=== PATIENT | male | born 1980 | race Hispanic/Latino ===

== ENCOUNTER 2017-06-28 18:10 | Emergency (ER) | payer OTHER, SELFPAY ==
--- NOTE | 2017-06-28 19:47 | EDPHYS ---
Physician Documentation [facility] Name: Gene Cade Age: 36 yrs Sex: Male : 1980 Arrival Date: 06/28/2017 Time: 18:10 Bed 30 Private MD: ED Physician Mick Mccarthy HPI: 06/28 19:43 This 36 yrs old Male presents to ER via Wheelchair with complaints of Neck mendel Pain, <24hrs Old, Shoulder Pain. 19:43 The patient or guardian complains of decreased range of motion, pain, a rash. The mendel symptoms are located. Historical: - Allergies: 18:26 Aspirin; aj - Home Meds: 18:26 escitalopram oxalate oral oral [Active]; Genvoya [phone] mg oral tab 1 tab once aj daily [Active]; - PMHx: 18:26 Intestinal parasite; HIV; aj - PSHx: 18:26 None; aj - Immunization history:: Adult Immunizations up to date. - Social history:: Smoking status: Patient uses tobacco products, smokes one-half pack cigarettes per day. ROS: 19:44 Constitutional: Negative for fever, chills, and weight loss, Eyes: Negative for injury, mendel pain, redness, and discharge, ENT: Negative for injury, pain, and discharge, Cardiovascular: Negative for chest pain, palpitations, and edema, Respiratory: Negative for shortness of breath, cough, wheezing, and pleuritic chest pain, Abdomen/GI: Negative for abdominal pain, nausea, vomiting, diarrhea, and constipation, Back: Negative for injury and pain, : Negative for injury, bleeding, discharge, and swelling, MS/Extremity: Negative for injury and deformity, Skin: Negative for injury, rash, and discoloration, Neuro: Negative for headache, weakness, numbness, tingling, and seizure, Psych: Negative for depression, anxiety, suicide ideation, homicidal ideation, and hallucinations, Allergy/Immunology: Negative for hives, rash, and allergies, Endocrine: Negative for neck swelling, polydipsia, polyuria, polyphagia, and marked weight changes, Hematologic/Lymphatic: Negative for swollen nodes, abnormal bleeding, and unusual bruising. 19:44 Neck: Positive for pain with movement, pain at rest, rash, swelling. 19:44 Skin: Positive for cellulitis, erythema, rash, swelling, of the right supraclavicular area and right clavicle and back of neck and back of head. Exam: 19:44 Constitutional: This is a well developed, well nourished patient who is awake, alert, mendel and in no acute distress. Eyes: Pupils equal round and reactive to light, extra-ocular motions intact. Lids and lashes normal. Conjunctiva and sclera are non-icteric and not injected. Cornea within normal limits. Periorbital areas with no swelling, redness, or edema. ENT: Nares patent. No nasal discharge, no septal abnormalities noted. Tympanic membranes are normal and external auditory canals are clear. Oropharynx with no redness, swelling, or masses, exudates, or evidence of obstruction, uvula midline. Mucous membranes moist. Chest/axilla: Normal chest wall appearance and motion. Nontender with no deformity. No lesions are appreciated. Cardiovascular: Regular rate and rhythm with a normal S1 and S2. No gallops, murmurs, or rubs. Normal PMI, no JVD. No pulse deficits. Respiratory: Lungs have equal breath sounds bilaterally, clear to auscultation and percussion. No rales, rhonchi or wheezes noted. No increased work of breathing, no retractions or nasal flaring. Abdomen/GI: Soft, non-tender, with normal bowel sounds. No distension or tympany. No guarding or rebound. No evidence of tenderness throughout. Back: No spinal tenderness. No costovertebral tenderness. Full range of motion. Male : Normal genitalia with no discharge or lesions. MS/ Extremity: Pulses equal, no cyanosis. Neurovascular intact. Full, normal range of motion. Neuro: Awake and alert, GCS 15, oriented to person, place, time, and situation. Cranial nerves II-XII grossly intact. Motor strength 5/5 in all extremities. Sensory grossly intact. Cerebellar exam normal. Normal gait. Psych: Awake, alert, with orientation to person, place and time. Behavior, mood, and affect are within normal limits. 19:44 Head/face: Noted is erythema, rash, swelling, that is moderate, of the right occipital area, right base of the skull and right mandible, tenderness, that is moderate. Vital Signs: 18:26 BP 144 / 93; Pulse 98; Resp 20; Temp 97.2; Pulse Ox 100% on R/A; Weight 88 kg; Height 6 aj ft. 0 in. (182.88 cm); Pain 3/10; 19:05 BP 138 / 85; Pulse 66; Resp 18; Pulse Ox 100% on R/A; Pain 6/10; lp1 19:30 BP 114 / 67; Pulse 69; Resp 18; Pulse Ox 100% on R/A; lp1 20:30 BP 136 / 90; Pulse 66; Resp 18; Pulse Ox 100% on R/A; lp1 21:30 BP 151 / 90; Pulse 61; Resp 18; Temp 98.1(O); Pulse Ox 100% on R/A; Pain 8/10; lp1 18:26 Body Mass Index 26.31 (88.00 kg, 182.88 cm) aj MDM: 19:30 Patient medically screened. [facility] 19:44 Data reviewed: vital signs, nurses notes, lab test result(s), EKG, radiologic studies, [facility] CT scan, plain films. 06/28 19:42 Order name: Basic Metabolic Panel [facility] 06/28 19:42 Order name: BNP; Complete Time: 21:42 [facility] 06/28 19:42 Order name: CBC with Diff; Complete Time: 21:42 [facility] 06/28 19:42 Order name: Ckmb; Complete Time: 21:42 [facility] 06/28 19:42 Order name: CPK; Complete Time: 21:42 [facility] 06/28 19:42 Order name: LFT's; Complete Time: 21:42 [facility] 06/28 19:42 Order name: Magnesium; Complete Time: 21:42 [facility] 06/28 19:42 Order name: PT-INR; Complete Time: 21:42 [facility] 06/28 19:42 Order name: Ptt, Activated; Complete Time: 21:42 [facility] 06/28 19:42 Order name: Troponin (emerg Dept Use Only); Complete Time: 21:42 [facility] 06/28 19:42 Order name: Blood Culture Adult (2) [facility] 06/28 19:43 Order name: Basic Metabolic Panel; Complete Time: 21:42 [facility] 06/28 19:50 Order name: Miscellaneous Test Lab; Complete Time: 21:42 [facility] 06/28 19:42 Order name: XRAY Chest (1 view); Complete Time: 21:42 [facility] 06/28 19:42 Order name: EKG; Complete Time: 19:43 [facility] 06/28 19:42 Order name: Cardiac monitoring; Complete Time: 20:16 [facility] 06/28 19:42 Order name: EKG - Nurse/Tech; Complete Time: 20:16 [facility] 06/28 19:42 Order name: IV Saline Lock; Complete Time: 20:16 [facility] 06/28 19:42 Order name: Labs collected and sent; Complete Time: 20:16 [facility] 06/28 19:42 Order name: O2 Per Protocol; Complete Time: 20:16 [facility] 06/28 19:42 Order name: O2 Sat Monitoring; Complete Time: 20:16 [facility] Administered Medications: 20:15 Drug: NS 0.9% 1000 ml Route: IV; Rate: 1 bolus; Site: right antecubital; lp1 21:45 Follow up: IV Status: Completed infusion lp1 20:16 Drug: fentaNYL (PF) 50 mcg Route: IVP; Site: right antecubital; lp1 20:30 Follow up: Response: Pain is decreased lp1 20:16 Drug: Zofran 4 mg Route: IVP; Site: right antecubital; lp1 20:30 Follow up: Response: No adverse reaction lp1 20:45 Drug: Acyclovir (20mg/kg) 800 mg Route: IVPB; Site: right antecubital; lp1 21:44 Follow up: IV Status: Completed infusion lp1 21:19 Drug: vancoMYCIN 1 grams Route: IVPB; Infused Over: 2 hrs; Site: left forearm; 21:45 Follow up: IV Status: Infusion continued upon transfer lp1 21:44 Drug: fentaNYL (PF) 50 mcg Route: IVP; Site: right antecubital; lp1 21:45 Follow up: Given prior to transfer lp1 Disposition: 06/28/17 19:47 Transfer ordered to [facility] (formerly [facility]3]. Diagnosis are Zoster [herpes zoster], Human immunodeficiency virus [HIV] disease, Cellulitis and acute lymphangitis of face and neck. - Reason for transfer: Higher level of care. - Accepting physician is to [facility]. - Condition is Fair. - Problem is new. - Symptoms have improved. Signatures: Dispatcher [employer] Reanna Woods RN RN aj Anderson, Corey, MD MD cha Chretien, Felicia, RN RN Hdz, Jaclyn, RN RN lp1
--- NOTE | 2017-06-28 19:47 | ER ---
Nurse's Notes [facility] Name: Gene Cade Age: 36 yrs Sex: Male : 1980 Arrival Date: 06/28/2017 Time: 18:10 Bed 30 Private MD: Diagnosis: Zoster [herpes zoster];Human immunodeficiency virus [HIV] disease;Cellulitis and acute lymphangitis of face and neck Presentation: 06/28 18:23 Presenting complaint: Patient states: Posterior neck pain that started 3 days ago. aj Patient reports he has sever pain when sitting up or standing. Transition of care: patient was not received from another setting of care. Onset of symptoms was June 25, 2017. Initial Sepsis Screen: Does the patient meet any 2 criteria? No. Patient's initial sepsis screen is negative. Does the patient have a suspected source of infection? No. Patient's initial sepsis screen is negative. Care prior to arrival: None. 18:23 Method Of Arrival: Wheelchair aj 18:23 Acuity: OFELIA 3 aj Triage Assessment: 18:26 General: Appears in no apparent distress. uncomfortable, Behavior is calm, cooperative, aj appropriate for age. Pain: Complains of pain in head, back of head and back of neck Pain currently is 10 out of 10 on a pain scale. Neuro: Level of Consciousness is awake, alert, obeys commands, Oriented to person, place, time, situation, Appropriate for age. Neuro: Denies photophobia. Respiratory: Airway is patent Respiratory effort is even, unlabored, Respiratory pattern is regular, symmetrical. Derm: Skin is intact, is healthy with good turgor, Skin is pink, warm \T\ dry. normal. Historical: - Allergies: 18:26 Aspirin; aj - Home Meds: 18:26 escitalopram oxalate oral oral [Active]; Genvoya [id number] mg oral tab 1 tab once aj daily [Active]; - PMHx: 18:26 Intestinal parasite; HIV; aj - PSHx: 18:26 None; aj - Immunization history:: Adult Immunizations up to date. - Social history:: Smoking status: Patient uses tobacco products, smokes one-half pack cigarettes per day. Screenin:09 Abuse screen: Denies threats or abuse. Denies injuries from another. Nutritional lp1 screening: No deficits noted. Tuberculosis screening: No symptoms or risk factors identified. Fall Risk None identified. Assessment: 19:06 General: Appears uncomfortable, Behavior is calm, cooperative, appropriate for age. lp1 Pain: Complains of pain in back of neck Pain currently is 6 out of 10 on a pain scale. Quality of pain is described as sharp, Pain began gradually, Aggravated by increased activity. Neuro: Level of Consciousness is awake, alert, obeys commands, Oriented to person, place, time, situation. Cardiovascular: Patient's skin is warm and dry. Respiratory: Respiratory effort is even, unlabored. GI: No signs and/or symptoms were reported involving the gastrointestinal system. : No signs and/or symptoms were reported regarding the genitourinary system. EENT: No signs and/or symptoms were reported regarding the EENT system. Derm: swelling noted to right base of scalp, small abscesses noted to area. Musculoskeletal: Circulation, motion, and sensation intact. 20:00 Reassessment: Patient is alert, oriented x 3, equal unlabored respirations, skin lp1 warm/dry/pink. Pain to neck at this time; MD aware. 21:00 Reassessment: Patient appears in no apparent distress at this time. Patient and/or lp1 family updated on plan of care and expected duration. Pain level reassessed. Patient is alert, oriented x 3, equal unlabored respirations, skin warm/dry/pink. Patient aware of need for transfer. 21:48 Reassessment: Report called to Reanna Sutton RN at [facility]. lp1 Vital Signs: 18:26 BP 144 / 93; Pulse 98; Resp 20; Temp 97.2; Pulse Ox 100% on R/A; Weight 88 kg; Height 6 aj ft. 0 in. (182.88 cm); Pain 3/10; 19:05 BP 138 / 85; Pulse 66; Resp 18; Pulse Ox 100% on R/A; Pain 6/10; lp1 19:30 BP 114 / 67; Pulse 69; Resp 18; Pulse Ox 100% on R/A; lp1 20:30 BP 136 / 90; Pulse 66; Resp 18; Pulse Ox 100% on R/A; lp1 21:30 BP 151 / 90; Pulse 61; Resp 18; Temp 98.1(O); Pulse Ox 100% on R/A; Pain 8/10; lp1 18:26 Body Mass Index 26.31 (88.00 kg, 182.88 cm) ED Course: 18:10 Patient arrived in ED. as 18:24 Triage completed. aj 18:26 Arm band placed on right wrist. Patient placed in an exam room. aj 18:58 Jaclyn Hdz, RN is Primary Nurse. lp1 19:09 Patient has correct armband on for positive identification. Placed in gown. Pulse ox lp1 on. NIBP on. 19:30 Mick Mccarthy MD is Attending Physician. [facility] 19:55 Inserted saline lock: 20 gauge in right antecubital area, using aseptic technique. lp1 Blood collected. 20:02 X-ray completed. Portable x-ray completed in exam room. Patient tolerated procedure bb2 well. 20:03 XRAY Chest (1 view) In Process Unspecified. EDMS 21:14 Inserted saline lock: 20 gauge in left forearm, using aseptic technique. 21:51 No provider procedures requiring assistance completed. Patient transferred, IV remains lp1 in place. Administered Medications: 20:15 Drug: NS 0.9% 1000 ml Route: IV; Rate: 1 bolus; Site: right antecubital; lp1 21:45 Follow up: IV Status: Completed infusion lp1 20:16 Drug: fentaNYL (PF) 50 mcg Route: IVP; Site: right antecubital; lp1 20:30 Follow up: Response: Pain is decreased lp1 20:16 Drug: Zofran 4 mg Route: IVP; Site: right antecubital; lp1 20:30 Follow up: Response: No adverse reaction lp1 20:45 Drug: Acyclovir (20mg/kg) 800 mg Route: IVPB; Site: right antecubital; lp1 21:44 Follow up: IV Status: Completed infusion lp1 21:19 Drug: vancoMYCIN 1 grams Route: IVPB; Infused Over: 2 hrs; Site: left forearm; fc 21:45 Follow up: IV Status: Infusion continued upon transfer lp1 21:44 Drug: fentaNYL (PF) 50 mcg Route: IVP; Site: right antecubital; lp1 21:45 Follow up: Given prior to transfer lp1 Intake: Outcome: 19:47 ER care complete, transfer ordered by . [facility] 21:51 Transferred by ground EMS to [facility], Transfer form lp1 completed. X-rays sent w/ patient. 21:51 Condition: stable 21:51 Instructed on the need for transfer. 21:52 Patient left the ED. lp1 Signatures: Dispatcher [employer] Reanna Woods RN RN aj Anderson, Corey, MD MD cha Chretien, Felicia, RN RN fc Martinez, Amelia as Pena, Laura, RN RN lp1 Magda Orozco
[2017-06-28] MEDS ORDERED: NA CHLORIDE 0.9% 1,000 ML ONE (20:05)
[2017-06-28] MEDS ORDERED: ONDANSETRON 4 MG/2 ML VIAL ONE (20:05)
[2017-06-28] MEDS ORDERED: FENTANYL CITR 100 MCG/2 ML ONE (20:05)
[2017-06-28 20:13] LABS: Absolute Lymphocytes (CBC) 1.8 K/uL (0.7-4.9); Absolute Monocytes 0.6 K/uL (0.1-1.3); Absolute Neutrophil 2.1 K/uL (1.8-8.0); Basophils % 0.6 % (0-1.3); Eosinophils % 1.6 % (0-4.4); Hematocrit 46.7 % (39.6-49.0); Lymphocytes % 39.5 % (15.3-44.8); MCH 30.9 pg (27.0-35.0); MCV 91.9 fL (80-100); MPV 7.9 fL (7.6-11.3); Monocytes % 11.9 % (3.3-12.3); RBC Red Blood Cell Count 5.08 M/uL (4.33-5.43)
[2017-06-28 20:16] LABS: Protime INR 1.01
[2017-06-28 20:21] LABS: Potassium 3.6 mEq/L (3.6-5.0)
[2017-06-28 20:27] LABS: Albumin 3.7 g/dL (3.2-5.5); Bilirubin Direct 0.1 mg/dL (0-0.2); Bilirubin Total 0.4 mg/dL (0.3-1.2); Protein, Total 7.9 g/dL (6.0-8.3)
[2017-06-28 20:30] LABS: CKMB Creatine Kinase MB 1.6 ng/ml (0.3-4.0)
[2017-06-28] MEDS ORDERED: ACYCLOVIR NA 500 MG/VIAL IVPB ONE (20:37)
[2017-06-28] MEDS ORDERED: NA CHLORIDE 0.9% 250 ML ONE ×2 (20:41→21:04)
[2017-06-28] MEDS ORDERED: VANCOMYCIN 1 GM/VIAL ONE (20:41)
--- NOTE | 2017-06-28 20:43 | RAD REPORT ---
EXAM DESCRIPTION: Jerome Single View06/28/2017 8:19 pm CLINICAL HISTORY: cough COMPARISON: none FINDINGS: The lungs appear clear of acute infiltrate. The heart is normal size IMPRESSION: No acute abnormalities displayed
--- NOTE | 2017-06-29 16:28 | EKG ---
Test Date: 2017-06-28 Test Time: 20:10:39 Offset Platemaker: DENZEL MEASUREMENT RESULTS: Intervals: Rate: 61 AL: 140 QRSD: 96 QT: 406 QTc: 408 Aurelia: P: 52 AL: 140 QRS: 67 T: 59 INTERPRETIVE STATEMENTS: Normal sinus rhythm Normal ECG No previous ECG available for comparison Electronically Signed On 06-29-17 16:23:58 CDT by Vasu Claire
== END 2017-06-28 21:52 | disposition short-term general hospital (02) ==
LOC: ER 18:10
DX: B02.9 Zoster without complications (principal); L03.211 Cellulitis of face; L03.221 Cellulitis of neck; F17.210 Nicotine dependence, cigarettes, uncomplicated; Z21 Asymptomatic human immunodeficiency virus [HIV] infection status; Z88.6 Allergy status to analgesic agent
CPT/HCPCS: 36415; 71045; 80048; 80076; 82550; 82553; 83735; 83880; 84484; 85025; 85610; 85730; 87040; 93005; 99285; J0133; J2405; J3010; J7030

== ENCOUNTER 2019-08-15 04:11 | Emergency (ER) | payer SELFPAY ==
--- OUTSIDE RECORDS SUMMARY | 2019-08-15 04:14 | XMS REPORT | Summary of Care ---
:1980 Author Organization [facility] Address [address] [place] [address] Care Team Providers Name Role Phone Pcp, Does Not Have A Primary Care Provider Reason for Visit Reason Comments Follow-up 6m attestation agusto vargas edication adherence/instructions Encounter Details Date Type Department Care Team Description 05/28/2019 Telephone [facility] Smitha Christie, Follow-u p (6m Infectious Diseases- RN attestation [address], medication [facility] [address] adherence/instructions [address] [place] [address] [address], [address] [place] [address] Allergies Active Allergy Reactions Severity Noted Date Comments Aspirin Swelling 12/02/2012 With a rash documented as of this encounter (statuses as of 05/28/2019) Medications Medication Sig Dispensed Refills Start Date End Date Status kqqrtgg-hog-yyoqm-tenof Take 1 tablet by 30 tablet 5 9 Active ALAFEN [id number] mouth daily. mg per tabletIndications: Asymptomatic HIV infection sulfamethoxazole-trimet 1 po daily 100 tablet 1 01/01/2019 Active hoprim (BACTRIM DS) 800-160 mg per tabletIndications: Asymptomatic HIV infection triamcinolone acetonide Apply to rash 15 g 2 03/10/2019 Active 0.1 % creamIndications: once daily as Rash needed for rash documented as of this encounter (statuses as of 05/28/2019) Active Problems Problem Noted Date Herpes zoster with meningitis 06/29/2017 Occipital lymphadenopathy 06/29/2017 Skin lesion of neck 06/29/2017 H/O gonorrhea of rectum 06/29/2017 H/O syphilis 06/29/2017 Positive test for herpes simplex virus (HSV) antibody 06/29/2017 Human immunodeficiency virus (HIV) disease 12/18/2012 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 RPR > 1:1024 (12/02/12), Treated with Bicillin 2.4 mil units x 3 on 12/24, 01/20, 02/13/13. Repeat RPR 1:64 (06/16) and 1:32 (12/19). 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 06/29/2017 documented as of this encounter (statuses as of 05/28/2019) Immunizations Name Administration Dates Next Due HEPATITIS A 12/24/2012 HEPLISAV HEP B, ADULT 2 DOSE, IM 03/10/2019 Hep B, Adol or Pedi Dosage 02/18/2013, 12/24/2012 Influenza Virus Vaccine (3+ yrs) 12/02/2012 Influenza Virus Vaccine Quad .5 mL IM 6+ MO 12/13/2018 Influenza Virus Vaccine Quad IM 3+ YRS 12/22/2016 Pneumococcal Polysaccharide, PPSV23 (PNEUMOVAX) 12/24/2012 Tetanus/Diptheria 06/24/2013 Twinrix (hep a/hep b) 06/24/2013 documented as of this encounter Social History Tobacco Use Types Packs/Day Years Used Date Former Smoker Cigarettes 0.25 06/28/1992 - 0 04/10/2018 Smokeless Tobacco: Never Used Comments: Smokes 2 packs a month Alcohol Use Drinks/Week oz/Week Comments Yes 2 Glasses of wine 1.7 drinks twice a month Sex Assigned at Date Recorded Not on file Job Start Date Occupation Industry Not on file Not on file Not on file Travel History Travel Start Travel End No recent travel history available. documented as of this encounter Last Filed Vital Signs Not on filedocumented in this encounter Plan of Treatment Date Type Specialty Care Team Description 06/09/2019 Office Visit [facility] [address] [place] [address] [phone] Health Maintenance Due Date Last Done Comments DTaP,Tdap,and Td Vaccines (1 - Tdap) 1989 PNEUMOCOCCAL 0-64 YEARS COMBINED 12/24/2013 12/24/2012 SERIES (2 of 3 - PCV13) INFLUENZA VACCINE Completed 12/13/2018, 12/22/2016, 12/02/2012 documented as of this encounter Results Not on filedocumented in this encounter
--- OUTSIDE RECORDS SUMMARY | 2019-08-15 04:14 | XMS REPORT | Summary of Care ---
:1980 Author Organization [address] [address] Care Team Providers Name Role Phone Pcp, Does Not Have A Primary Care Provider Reason for Visit Reason Comments Rx Concern/Question THMP/ADAP emergency attestat ion uploaded into [email or web address] for processing Encounter Details Date Type Department Care Team Description 05/30/2019 Case Management [facility] Selin Christiansen MA Rx Concern/Question Infectious [address] [place] [address] (THMP/ADAP em [facility] [place] [address] [place] [address] into [email or web address] for [address] [place] [address] Allergies Active Allergy Reactions Severity Noted Date Comments Aspirin Swelling 12/02/2012 With a rash documented as of this encounter (statuses as of 05/30/2019) Medications Medication Sig Dispensed Refills Start Date End Date Status kkfkldf-faq-hfxam-tenof Take 1 tablet by 30 tablet 5 9 Active ALAFEN [id number] mouth daily. mg per tabletIndications: Asymptomatic HIV infection sulfamethoxazole-trimet 1 po daily 100 tablet 1 01/01/2019 Active hoprim (BACTRIM DS) 800-160 mg per tabletIndications: Asymptomatic HIV infection triamcinolone acetonide Apply to rash 15 g 2 03/10/2019 Active 0.1 % creamIndications: once daily as Rash needed for rash documented as of this encounter (statuses as of 05/30/2019) Active Problems Problem Noted Date Herpes zoster [...] as of this encounter (statuses as of 05/30/2019) Resolved Problems Problem Noted Date Resolved Date Herpes zoster 07/01/2017 07/04/2017 Cellulitis of neck 06/29/2017 07/04/2017 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 A copy of the upload notice has been filed in client's [place] case management chart. A total of 30 minutes was taken to complete this encounter. documented in this encounter Plan of Treatment Date Type Specialty Care Team Description 06/09/2019 Telemedicine Visit [facility] [place] SHAMIR Abrams [address] [place] [address] Health Maintenance Due Date Last Done Comments DTaP,Tdap,and Td Vaccines (1 - Tdap) 1989 PNEUMOCOCCAL 0-64 YEARS COMBINED 12/24/2013 12/24/2012 SERIES (2 of 3 - PCV13) INFLUENZA VACCINE Completed 12/13/2018, 12/22/2016, 12/02/2012 documented as of this encounter Results Not on filedocumented in this encounter
--- OUTSIDE RECORDS SUMMARY | 2019-08-15 04:14 | XMS REPORT | Continuity of Care Document ---
:1980 Author Organization [facility] t Address [facility]ly [facility] [address] [place] [address] Care Team Providers Name Role Phone Oscar BARKSDALE Attending Clinician Karissa Christiansen MA Attending Clinician Unavailable Pratik BANSAL L Attending Clinician Unavailable Karissa Lawson LVN Attending Clinician Unavailable Problems This patient has no known problems. Allergies, Adverse Reactions, Alerts This patient has no known allergies or adverse reactions. Medications This patient has no known medications. Procedures This patient has no known procedures. Encounters Start End Encounter Admission Attending Care Care Encounter Source Date/Time Date/Time Type Type Clinicians Facility Department ID 2019-07-22 2019-07-22 Nathalie Moore [facility] [id number] 00:00:00 00:00:00 [facility] [id number] [facility] [id number] 2019-07-18 2019-07-18 Nathalie Moore [facility] [id number] 00:00:00 00:00:00 [facility] [id number] [facility] [id number] 2019-05-30 2019-05-30 Case CRISTINA Christiansen [id number] 00:00:00 00:00:00 Management [facility] [id number] [facility] [id number] 2019-05-28 2019-05-28 Telephone CRISTINA Christie [id number] 00:00:00 00:00:00 [facility] [id number] [facility] [id number] 2019-05-06 2019-05-06 [facility] [id number] 00:00:00 00:00:00 Management [facility] [id number] [facility] [id number] 2019-05-06 2019-05-06 [facility] [id number] 00:00:00 00:00:00 Management [facility] [id number] [facility] [id number] 2018-11-05 2018-11-05 [place] [id number] 00:00:00 00:00:00 [facility] [id number] [facility] [id number] 2018-10-29 [facility] [id number] 00:00:00 00:00:00 [facility] [id number] [facility] [id number] 2018-10-22 2018-10-22 [facility] [id number] 00:00:00 00:00:00 Management [facility] [id number] [facility] [id number] Results This patient has no known results.
--- OUTSIDE RECORDS SUMMARY | 2019-08-15 04:15 | XMS REPORT | Summary of Care ---
:1980 Author Organization [facility] Address [address] [place] [id number] Care Team Providers Name Role Phone Pcp, Does Not Have A Primary Care Provider Reason for Visit Reason Comments Refill Request Encounter Details Date Type Department Care Team Description 07/22/2019 Refill [facility], SHAMIR Siddiqui Refill Request Diseases- [id number] [place] [address] [place] [address] [place] [address] Allergies Active Allergy Reactions Severity Noted Date Comments Aspirin Swelling 12/02/2012 With a rash documented as of this encounter (statuses as of 07/22/2019) Medications Medication Sig Dispensed Refills Start Date End Date Status sulfamethoxazole-trimet 1 po daily 100 tablet 1 01/01/2019 Active hoprim (BACTRIM DS) 800-160 mg per tabletIndications: Asymptomatic HIV infection triamcinolone acetonide Apply to rash 15 g 2 03/10/2019 Active 0.1 % creamIndications: once daily as Rash needed for rash tnjeolv-jdm-qumvq-tenof Take 1 tablet by 30 tablet 0 0 Active ALAFEN [phone] mouth daily. 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 documented as of this encounter (statuses as of 07/22/2019) Immunizations Name Administration Dates Next Due HEPATITIS [...] filedocumented in this encounter Plan of Treatment Health Maintenance Due Date Last Done Comments DTaP,Tdap,and Td Vaccines (1 - Tdap) 1989 PNEUMOCOCCAL 0-64 YEARS COMBINED 12/24/2013 12/24/2012 SERIES (2 of 3 - PCV13) INFLUENZA VACCINE Completed 12/13/2018, 12/22/2016, 12/02/2012 documented as of this encounter Results Not on filedocumented in this encounter Visit Diagnoses Diagnosis Asymptomatic HIV infection Asymptomatic human immunodeficiency viru s (HIV) infection status documented in this encounter
--- OUTSIDE RECORDS SUMMARY | 2019-08-15 04:15 | XMS REPORT | Summary of Care ---
:1980 Author Organization [facility] - [address] [address] Care Team Providers Name Role Phone Pcp, Does Not Have A Primary Care Provider Reason for Visit Reason Comments Refill Request mpgnvxl-adx-eatmj-tenof ALAF EN (GENVOYA) [phone] mg per tablet 1 tablet Encounter Details Date Type Department Care Team Description 07/18/2019 Refill [facility], SHAMIR Siddiqui Refill Request Diseases- [address] (vsdebfv-xsc-yfify-tenof [facility] [id number] ALAFEN (GENVOYA) [address] [place], [place] 150- [phone] mg per 6th Floor [id number] tablet 1 tablet ) [place], [place] [phone] Allergies Active Allergy Reactions Severity Noted Date Comments Aspirin Swelling 12/02/2012 With a rash documented as of this encounter (statuses as of 07/21/2019) Medications Medication Sig Dispensed Refills Start Date End Date Status sulfamethoxazole-tr 1 po daily 100 tablet 1 01/01/2019 Active imethoprim (BACTRIM DS) 800-160 mg per tabletIndications: Asymptomatic HIV infection triamcinolone Apply to 15 g 2 03/10/2019 Activ e acetonide 0.1 % rash once creamIndications: daily as Rash needed for rash wpdzcbt-okm-bwdqf-t Take 1 30 tablet 0 07/21/2019 Active enof ALAFEN tablet by [phone] mg mouth per daily. tabletIndications: Asymptomatic HIV infection sfhitdh-uux-wgplq-t Take 1 30 tablet 5 01/01/2019 Discontinued enof ALAFEN tablet by 0 (Reorder ) [phone] mg mouth per daily. 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
[2019-08-15] MEDS ORDERED: NA CHLORIDE 0.9% 1,000 ML ONE (04:38)
[2019-08-15 04:54] LABS: Absolute Lymphocytes (CBC) 0.8 K/uL (0.7-4.9); Basophils % 0.3 % (0-1.3); Hematocrit 38.1 % (39.6-49.0); Lymphocytes % 19.4 % (15.3-44.8); RBC Red Blood Cell Count 4.18 M/uL (4.33-5.43)
[2019-08-15 05:07] LABS: Potassium 3.7 mmol/L (3.5-5.1)
--- NOTE | 2019-08-15 06:09 | ER ---
Nurse's Notes [facility] Name: Gene Cade Age: 38 yrs Sex: Male : 1980 Arrival Date: 08/15/2019 Time: 04:12 Bed 3 Private MD: Diagnosis: Suspected heroin overdose Presentation: 08/14 04:02 Chief complaint: EMS states: PT was found unresponsive and not breathing by bystanders. jb4 Upon EMS arrival, pt was unresponsive breathing at a rate of 4 breathes per minute. Lips and fingers were cyanotic, would only breathe when jaw was manually opened. Bystanders reports possible Heroine use, pupils pinpoint, given 2mg of Narcan intranasally, no response to medication, 18g IV started to right AC, given 2mg of Narcan IV. After approximately 5 minutes patient began breathing on his own. Became A\T\O x4 while in transit, BGL 242. 04:02 Coronavirus screen: Proceed with normal triage. Ebola Screen: No symptoms or risks jb4 identified at this time. Initial Sepsis Screen: Does the patient meet any 2 criteria? HR > 90 bpm. Yes Does the patient have a suspected source of infection? No. Patient's initial sepsis screen is negative. Risk Assessment: Do you want to hurt yourself or someone else? Patient reports no desire to harm self or others. Onset of symptoms was August 15, 2019. Care prior to arrival: Assisted ventilation, Medication(s) given: Normal saline infusion, 1000 mL, Narcan: 2mg Intranasally, 2mg IV IV initiated. 18 GA, in the right antecubital area, Glucose check: 242. Transition of care: patient was not received from another setting of care. 04:02 Method Of Arrival: EMS: [facility] jb4 04:02 Acuity: OFELIA 2 jb4 Historical: - Allergies: 04:15 Aspirin; sg - Home Meds: 04:02 Genvoya [phone] mg Oral tab 1 tab once daily [Active]; terbinafine HCl 250 mg jb4 oral tab 1 tab once daily [Active]; - PMHx: 04:15 HIV; Intestinal parasite; sg - PSHx: 04:15 None; sg - Immunization history:: Adult Immunizations not up to date. - Social history:: Smoking status: Patient reports the use of cigarette tobacco products, Patient uses street drugs, Methamphetamine (Meth) Patient/guardian denies using alcohol. - Family history:: not pertinent. - Hospitalizations: : No recent hospitalization is reported. Screenin:30 Abuse screen: Denies threats or abuse. Nutritional screening: No deficits noted. jb4 Tuberculosis screening: No symptoms or risk factors identified. Fall Risk None identified. Assessment: 04:30 General: Appears in no apparent distress. comfortable, Behavior is calm, cooperative, jb4 appropriate for age. Pain: Denies pain. Neuro: Level of Consciousness is awake, alert, obeys commands, Oriented to person, place, time, situation. Cardiovascular: Patient's skin is warm and dry. Respiratory: Airway is patent Respiratory effort is even, unlabored, Respiratory pattern is regular, symmetrical. GI: No signs and/or symptoms were reported involving the gastrointestinal system. : No signs and/or symptoms were reported regarding the genitourinary system. EENT: No signs and/or symptoms were reported regarding the EENT system. Derm: Skin is intact, Skin is pink, warm \T\ dry. Musculoskeletal: Circulation, motion, and sensation intact. Range of motion: intact in all extremities. 05:09 Reassessment: Patient appears in no apparent distress at this time. Patient and/or jb4 family updated on plan of care and expected duration. Pain level reassessed. Patient is alert, oriented x 3, equal unlabored respirations, skin warm/dry/pink. 06:04 Reassessment: Patient appears in no apparent distress at this time. Patient and/or jb4 family updated on plan of care and expected duration. Pain level reassessed. Patient is alert, oriented x 3, equal unlabored respirations, skin warm/dry/pink. 06:29 Reassessment: Patient appears in no apparent distress at this time. Patient and/or jb4 family updated on plan of care and expected duration. Pain level reassessed. Patient is alert, oriented x 3, equal unlabored respirations, skin warm/dry/pink. PT verbalized understanding of d/c and follow up instructions. Denies questions or concerns, transferred to vehicle via wheelchair, left with family. Vital Signs: 04:02 BP 116 / 80; Pulse 114; Resp 16; Temp 97.8(TE); Pulse Ox 99% on R/A; Weight 98.88 kg jb4 (R); Height 6 ft. 0 in. (182.88 cm) (R); Pain 0/10; 05:00 BP 104 / 71; Pulse 94; Resp 12; Pulse Ox 97% ; jb4 06:00 BP 113 / 79; Pulse 80; Resp 13; Pulse Ox 100% on R/A; jb4 04:02 Body Mass Index 29.57 (98.88 kg, 182.88 cm) jb4 ED Course: 04:12 Patient arrived in ED. sg 04:16 Arm band placed on. sg 04:17 Abbe Bedolla MD is Attending Physician. rn 04:20 Nicanor Becerra RN is Primary Nurse. jb4 04:28 Triage completed. jb4 04:30 Patient has correct armband on for positive identification. Bed in low position. Call jb4 light in reach. Side rails up X 1. alarm security or surveillance monitor on. Pulse ox on. NIBP on. 06:29 No provider procedures requiring assistance completed. IV discontinued, intact, jb4 bleeding controlled, No redness/swelling at site. Pressure dressing applied. Administered Medications: 05:00 Drug: NS 0.9% 1000 ml Route: IV; Rate: 1000 ml; Site: right antecubital; jb4 05:59 Follow up: Response: No adverse reaction; IV Status: Completed infusion; IV Intake: jb4 1000ml Intake: 05:59 IV: 1000ml; Total: 1000ml. jb4 Outcome: 06:09 Discharge ordered by . rn 06:29 Discharged to home via wheelchair, with family. jb4 06:29 Condition: stable 06:29 Discharge instructions given to patient, Instructed on discharge instructions, follow up and referral plans. Demonstrated understanding of instructions, follow-up care. 06:34 Patient left the ED. jb4 Signatures: Stanislav Krueger RN RN sg Nieto, Roman, MD MD rn Bryson, James, RN RN jb4 Corrections: (The following items were deleted from the chart) 05:39 04:30 NS 0.9% 1000 ml IV at 1000 ml in right antecubital jb4 jb4
--- NOTE | 2019-08-15 06:09 | EDPHYS ---
Physician Documentation [facility] Name: Gene Cade Age: 38 yrs Sex: Male : 1980 Arrival Date: 08/15/2019 Time: 04:12 Bed 3 Private MD: ED Physician Abbe Bedolla HPI: 08/14 04:25 This 38 yrs old Male presents to ER via Unassigned with complaints of Possible rn Overdose. 04:25 The patient presents to the emergency department with a possible overdose. Severity of rn symptoms: At their worst the symptoms were severe in the emergency department the symptoms have improved. It is unknown whether or not the patient has had similar symptoms in the past. Per EMS report, bystanders checked on him, found him unresponsive, EMS arrived, were told he was talking about getting heroin earlier in day but no one witnessed him using, gave 2 doses of narcan with improvement of symptoms, now nearly back to baseline. patient does not recall events. Denies pain. States remembers hanging out with people and eating dinner, doesn't recall events after that. Denies recent illness or head injury. EMS reports pinpoint pupils and RR 4. . Historical: - Allergies: 04:15 Aspirin; sg - Home Meds: 04:02 Genvoya [phone] mg Oral tab 1 tab once daily [Active]; terbinafine HCl 250 mg jb4 oral tab 1 tab once daily [Active]; - PMHx: 04:15 HIV; Intestinal parasite; sg - PSHx: 04:15 None; sg - Immunization history:: Adult Immunizations not up to date. - Social history:: Smoking status: Patient reports the use of cigarette tobacco products, Patient uses street drugs, Methamphetamine (Meth) Patient/guardian denies using alcohol. - Family history:: not pertinent. - Hospitalizations: : No recent hospitalization is reported. ROS: 04:25 Constitutional: Negative for fever, chills, and weight loss, Eyes: Negative for injury, rn pain, redness, and discharge, Neck: Negative for injury, pain, and swelling, Cardiovascular: Negative for chest pain, palpitations, and edema, Respiratory: Negative for shortness of breath, cough, wheezing, and pleuritic chest pain, Abdomen/GI: Negative for abdominal pain, nausea, vomiting, diarrhea, and constipation, MS/Extremity: Negative for injury and deformity, Skin: Negative for injury, rash, and discoloration, Neuro: Negative for headache, weakness, numbness, tingling, and seizure. Exam: 04:25 Constitutional: This is a well developed, well nourished patient who is awake, alert, rn and in no acute distress. Head/Face: Normocephalic, atraumatic. Eyes: Pupils equal round and reactive to light, extra-ocular motions intact. No nystagmus. ENT: dry MM Cardiovascular: Tachycardic, regular Respiratory: Speaking full sentences. No increased work of breathing, no retractions or nasal flaring. Abdomen/GI: soft, non-tender Skin: Warm, dry with normal turgor. Normal color with no rashes, no lesions, and no evidence of cellulitis. MS/ Extremity: Pulses equal, no cyanosis. Neurovascular intact. Full, normal range of motion. Equal circumference. Neuro: Awake and alert, GCS 15, oriented to person, place, and situation. Cranial nerves II-XII grossly intact. Motor strength 5/5 in all extremities. Sensory grossly intact. Cerebellar exam normal. 05:04 ECG was reviewed by the Attending Physician. rn Vital Signs: 04:02 BP 116 / 80; Pulse 114; Resp 16; Temp 97.8(TE); Pulse Ox 99% on R/A; Weight 98.88 kg jb4 (R); Height 6 ft. 0 in. (182.88 cm) (R); Pain 0/10; 05:00 BP 104 / 71; Pulse 94; Resp 12; Pulse Ox 97% ; jb4 06:00 BP 113 / 79; Pulse 80; Resp 13; Pulse Ox 100% on R/A; jb4 04:02 Body Mass Index 29.57 (98.88 kg, 182.88 cm) jb4 MDM: 04:17 Patient medically screened. rn 06:04 Differential diagnosis: suspected overdose. Data reviewed: vital signs, nurses notes, rn hemodialysis charge test result(s), EKG, and as a result, I will discharge patient. Counseling: I had a detailed discussion with the patient and/or guardian regarding: the historical points, exam findings, and any diagnostic results supporting the discharge/admit diagnosis, lab results, the need for outpatient follow up, to return to the emergency department if symptoms worsen or persist or if there are any questions or concerns that arise at home. Response to treatment: the patient's symptoms have resolved after treatment, the patient's condition has returned to base line, the patient is now symptom free, and as a result, I will discharge patient. Special discussion: I discussed with the patient/guardian in detail that at this point there is no indication for admission to the hospital. It is understood, however, that if the symptoms persist or worsen the patient needs to return immediately for re-evaluation. ED course: Pt refuses to produce urine for drug testing, most likely overdose given presentation and resolution with narcan. Bystanders reported he was talking about heroin earlier in day. Counseled regarding drug use practices. . 08/14 04:25 Order name: Basic Metabolic Panel; Complete Time: 05:14 rn 08/14 04:25 Order name: CBC with Diff; Complete Time: 05: rn 08/14 04:25 Order name: ETOH Level; Complete Time: 05: rn 08/14 04:25 Order name: EKG; Complete Time: 04: rn 08/14 04:25 Order name: EKG - Nurse/Tech; Complete Time: 04:40 rn 08/14 04:25 Order name: IV Saline Lock; Complete Time: 04: rn 08/14 04:25 Order name: Labs collected and sent; Complete Time: 04:40 rn EC:04 Rate is 109 beats/min. Rhythm is regular. QRS [place] is Normal. IN interval is normal. rn QRS interval is normal. QT interval is normal. No Q waves. T waves are Normal. No ST changes noted. Clinical impression: Sinus tachycardia. Interpreted by me. Reviewed by me. Administered Medications: 05:00 Drug: NS 0.9% 1000 ml Route: IV; Rate: 1000 ml; Site: right antecubital; jb4 05:59 Follow up: Response: No adverse reaction; IV Status: Completed infusion; IV Intake: jb4 1000ml Disposition: 08/15/19 06:09 Discharged to Home. Impression: Suspected heroin overdose. - Condition is Stable. - Discharge Instructions: Accidental Overdose, Drug Overdose. - Medication Reconciliation Form, Thank You Letter, Antibiotic Education, Prescription Opioid Use form. - Follow up: Private Physician; When: As needed; Reason: Recheck today's complaints, Re-evaluation by your physician. - Problem is new. - Symptoms have improved. Signatures: Dispatcher [employer] EDStanislav Dial RN RN Abbe Bedolla MD MD rn Bryson, James, RN RN jb4 Corrections: (The following items were deleted from the chart) 06:28 04:25 Urine Dipstick-Ancillary ordered. mahad lanier 06:34 06:09 08/15/2019 06:09 Discharged to Home. Impression: Suspected heroin overdose. jb4 Condition is Stable. Forms are Medication Reconciliation Form, Thank You Letter, Antibiotic Education, Prescription Opioid Use. Follow up: Private Physician; When: As needed; Reason: Recheck today's complaints, Re-evaluation by your physician. Problem is new. Symptoms have improved. rn
[2019-08-15 06:41] VITALS: BP 113/79; O2SAT 100
== END 2019-08-15 06:34 | disposition home or self-care (01) ==
LOC: ER 04:11
DX: R40.4 Transient alteration of awareness (principal); F15.90 Other stimulant use, unspecified, uncomplicated; F17.210 Nicotine dependence, cigarettes, uncomplicated
CPT/HCPCS: 36415; 80048; 80320; 85025; 93005; 96360; 99284; J7030